=== PATIENT | male | born 1950 | race Caucasian/White ===

== ENCOUNTER → 2022-03-03 | Outpatient (CLI) | payer MEDICARE ==
[2022-03-03 17:59] LABS: African American GFR (CKD) >90 (>60 ml/min/1.73 sqM); Blood Urea Nitrogen 9 mg/dL (9-20); Non-African American GFR(CKD) >90 (>60 ml/min/1.73 sqM)
--- NOTE | 2022-03-03 20:56 | CT ---
EXAMINATION TYPE: CT ChestAbdPelvis w con DATE OF EXAM: 03/03/2022 COMPARISON: None. HISTORY: brain lesion. obs for mets. Pain. CT DLP: 1468 mGycm. Automated Exposure Control for Dose Reduction was Utilized. CONTRAST: CT scan of the thorax, abdomen and pelvis is performed with IV Contrast, patient injected with 100 mL of Isovue 300. FINDINGS: LUNGS: Suspicious lobulated right upper lung mass measuring 5.7 x 7.1 cm axial image 20 x 8.3 cm sagi ttal image 49 in craniocaudal dimension extending from right hilum. Additional scattered small nodul es bilaterally for reference 3 scattered nodules up to 5 mm axial image 34 and 3 nodules up to 4 mm s uperior right lower lobe axial image 35. Additional scattered small nodules throughout the bilateral lower lobes, largest measures 9 x 9 mm in the left lower lobe periphery axial image 51. No pleural ef fusion or pneumothorax is seen.. MEDIASTINUM: There are abnormal thoracic lymph nodes. There is abnormal anterior right hilar 2.1 x 1 .4 cm lymph node axial image 31. Suspicious prominent borderline enlarged prevascular lung with AP wi ndow lymph nodes. Abnormal 1.7 x 1.3 cm pericarinal lymph node axial image 29. No cardiomegaly or per icardial effusion is seen. Ascending aorta measures up to 3.9 cm in diameter. Moderate to severe cor onary artery calcification is present. LIVER/GB: No significant abnormality is appreciated. PANCREAS: No significant abnormality is seen. SPLEEN: No significant abnormality is seen. ADRENALS: No significant abnormality is seen. KIDNEYS: Symmetric cortical medullary uptake and excretion with mild left-sided hydronephrosis. No hy droureter is seen. Possible UPJ stricture or stenosis. Circumaortic left renal vein which is normal v ariant. BOWEL: Oral contrast reaches level of sigmoid colon. Diverticula on the left and sigmoid colon. No CT evidence for acute diverticulitis. Normal contrast-filled appendix from the cecum. GENITAL ORGANS: Enlarged prostate consistent with BPH. LYMPH NODES: No greater than 1cm abdominal or pelvic lymph nodes are appreciated. OSSEOUS STRUCTURES: No significant abnormality is seen. OTHER: Small to moderate-sized fat-containing umbilical hernia. Mild to moderate calcified plaque of the aorta extends into branch vessels.. Infrarenal AAA up to 4.2 cm transversely axial image 85. Smal l sized fat-containing left inguinal hernia. IMPRESSION: Suspicious right upper lobe mass worrisome for primary neoplasm. Abnormal thoracic adeno nhung. Nonspecific scattered small bilateral lower lung nodules suspicious for hematogenous metastati c spread of neoplasm.
== END | disposition home or self-care (01) ==
LOC: RADCTMAIN 16:33
PROVIDERS: ATTEND Internal Medicine Hematology & Oncology
DX: G93.89 Other specified disorders of brain (principal)
CPT/HCPCS: 82565; 84520; 71260; 74177; 36415; Q9967

== ENCOUNTER → 2022-04-13 | Outpatient (CLI) | payer MEDICARE ==
--- NOTE | 2022-04-13 17:40 | US ---
EXAMINATION TYPE: US venous doppler duplex LE DATE OF EXAM: 04/13/2022 5:29 PM COMPARISON: NONE CLINICAL HISTORY: M79.661, R22.42 PAIN JAIDEN LEGS M79.662, M79.661. SIDE PERFORMED: Bilateral TECHNIQUE: The lower extremity deep venous system is examined utilizing real time linear array sonog jermain with graded compression, doppler sonography and color-flow sonography. VESSELS IMAGED: Common Femoral Vein Deep Femoral Vein Greater Saphenous Vein * Femoral Vein Popliteal Vein Small Saphenous Vein * Proximal Calf Veins (* superficial vessels) Right Leg: Negative for DVT Left Leg: Negative for DVT IMPRESSION: No evidence of deep vein thrombosis in the legs.
== END ==
LOC: RADUSWWP 16:51
PROVIDERS: ATTEND Internal Medicine Hematology & Oncology
DX: M79.661 Pain in right lower leg (principal); M79.662 Pain in left lower leg; R22.41 Localized swelling, mass and lump, right lower limb; R22.42 Localized swelling, mass and lump, left lower limb
CPT/HCPCS: 93970